=== PATIENT | male | born 1995 | race Caucasian/White ===

== ENCOUNTER 2019-08-25 12:19 | Emergency (ER) | payer OTHER | END 2019-08-25 13:14 | disposition home or self-care (01) | LOC: SCSER 12:19 | DX: J11.1 Influenza due to unidentified influenza virus with other respiratory manifestations (principal); F41.9 Anxiety disorder, unspecified; F32.9 Major depressive disorder, single episode, unspecified | CPT/HCPCS: 99283 ==